=== PATIENT | male | born 1975 | race Caucasian/White ===

== ENCOUNTER → 2023-02-09 09:46 | Outpatient (CLI) | payer OTHER, SELFPAY ==
--- NOTE | ~2023-02-09 | US_ITS ---
EXAMINATION: US soft tissue head and neck DATE: 02/09/2023 10:16 INDICATION: Localized swelling, mass and lump at the neck. TECHNIQUE: Multiple grayscale and Doppler ultrasound images of the region of concern at the left and right neck were obtained. COMPARISON: None FINDINGS: There are several normal sized and normal-appearing hypoechoic lymph nodes with central echogenic fat ty gay along the left and right jugular chains. These include lymph nodes measuring 1.8 x 1.2 x 0.7 cm, 2.9 x 2.1 x 0.4 cm and 1.3 x 0.8 x 0.2 cm on the right and 2.7 x 1.0 x 0.7 cm and 1.0 x 0.5 x 0.3 cm on the left. The larger lymph nodes on each side while within normal limits in size also lie rela tively close to the skin surface which likely accounts for the prominence on exam. No other abnormal masses or fluid collections identified. IMPRESSION: 1. Normal-sized bilateral jugular chain lymph nodes in the regions of concern. Reviewed, dictated and finalized at location A. [facility] CL[facility]
== END ==
PROVIDERS: PCP Physician Assistant; Visit Provider Physician Assistant
DX: R22.1 Localized swelling, mass and lump, neck (principal)
CPT/HCPCS: 76536